=== PATIENT | female | born 1950 | race Caucasian/White ===

== ENCOUNTER 2022-10-08 10:13 | Outpatient (CLI) | payer MEDICARE | END 2022-10-08 10:14 | disposition home or self-care (01) | LOC: CSHMRI 10:13 | PROVIDERS: ATTEND General Practice | DX: S32.011A Stable burst fracture of first lumbar vertebra, initial encounter for closed fracture (principal) | CPT/HCPCS: 72148 ==

== ENCOUNTER 2023-01-30 12:27 | Outpatient (CLI) | payer MEDICARE | END 2023-01-30 12:28 | disposition home or self-care (01) | LOC: CSHRAD 12:27 | PROVIDERS: ATTEND General Practice | DX: R07.81 Pleurodynia (principal) | CPT/HCPCS: 71110 ==